=== PATIENT | male | born 1955 | race American Indian/Alaskan Native ===

== ENCOUNTER 2019-08-19 08:20 | Emergency (ER) | payer SELFPAY ==
--- NOTE | 2019-08-19 10:36 | Emergency Department Report ---
ED Headache HPI - General Chief Complaint: Headache Stated Complaint: GENERAL ILLNESS Time Seen by Provider: 08/19/19 09:24 Source: patient, RN notes reviewed Exam Limitations: no limitations - History of Present Illness Initial Comments: This is a 64-year-old -[place] male that presents to the emergency room with a headache for 2 weeks. Patient reports headache is global and intermittent. He states "it feels like someone is sticking a safety pen in my head". Patient states he usually get intermittent headaches when he is off of medication. Reports past medical history of hypertension and current smoker. Patient states he ran out of blood pressure medication 2 months ago and unable to get a refill. Patient states he usually get refills [facility] [place]. He attempts several calls with no answer. He denies chest pain, palpitations, visual changes, or dizziness. Timing/Duration: 1 week, episodic Quality: stabbing Head Injury Location: global Recent Head Trauma: no recent headache/trauma, occasional headaches Modifying Factors: improves with: medication Associated Symptoms: denies symptoms Allergies/Adverse Reactions: Allergies No Known Allergies Allergy (Unverified 08/19/19 08:27) Home Medications: Ambulatory Orders Lisinopril [Zestril] 5 mg PO DAILY #30 tablet 08/19/19 ED Review of Systems ROS: Stated complaint: GENERAL ILLNESS Other details as noted in HPI Constitutional: denies: chills, fever Respiratory: denies: cough, shortness of breath, wheezing Cardiovascular: denies: chest pain, palpitations Gastrointestinal: denies: abdominal pain, nausea, diarrhea Musculoskeletal: denies: back pain, joint swelling, arthralgia Skin: denies: rash, lesions Neurological: headache. denies: weakness, paresthesias Psychiatric: denies: anxiety, depression ED Past Medical Hx - Past Medical History Hx Hypertension: Yes - Surgical History Past Surgical History?: No - Social History Smoking Status: Current Every Day Smoker - Medications Home Medications: Home Medications Medication Instructions Recorded Confirmed Last Taken Type Lisinopril [Zestril] 5 mg PO DAILY #30 tablet 08/19/19 Unknown Rx ED Physical Exam - General Limitations: No Limitations General appearance: alert, in no apparent distress, obese - ENT ENT exam: Present: mucous membranes moist - Respiratory Respiratory exam: Present: normal lung sounds bilaterally. Absent: respiratory distress - Cardiovascular Cardiovascular Exam: Present: regular rate, normal rhythm. Absent: systolic murmur, diastolic murmur, rubs, gallop - GI/Abdominal GI/Abdominal exam: Present: soft, normal bowel sounds. Absent: distended, tenderness, guarding, rebound, rigid - Extremities Exam Extremities exam: Present: normal inspection - Neurological Exam Neurological exam: Present: alert, oriented X3, normal gait - Psychiatric Psychiatric exam: Present: normal affect, normal mood - Skin Skin exam: Present: warm, dry, intact, normal color. Absent: rash ED Course Vital Signs 08/19/19 08/19/19 08/19/19 10:22 10:56 11:42 Temperature 97.9 F Pulse Rate 98 H 69 62 Respiratory 16 18 Rate Blood Pressure 175/107 Blood Pressure 185/116 173/96 [Right] O2 Sat by Pulse 100 Oximetry ED Medical Decision Making - Medical Decision Making This is a 64 y.o. male that presents with headache for 1 to 2 weeks intermittently. History of HTN and current smoker. Patient off lisinopril for 2 months. Prior to running out of medication he was receiving refills by [facility] [place]. Patient is stable. He denies visual changes, dizziness, palpitations, chest pain, confusion, or edema. Blood pressure today is 185/116. Low suspicion of heart failure, AMI, or organ damage. Given lisinopril 5 mg po and Toradol 20 mg p.o. once in ER. Blood pressure trended down and reports feeling better. Blood pressure 173/96 prior to discharge. Informed patient it is important for him to monitor his blood pressure and follow-up outpatient with a primary care doctor. He was provided a prescription for lisinopril 5 mg p.o. daily which he previously took. Referrals for PCP follow-up. No further questions noted by the patient. Discharged home in stable condition. Follow up with PCP in 1 week. Critical care attestation.: If time is entered above; I have spent that time in minutes in the direct care of this critically ill patient, excluding procedure time. ED Disposition Clinical Impression: Current smoker Hypertension Qualifiers: Hypertension type: essential hypertension Qualified Code(s): I10 - Essential (primary) hypertension Disposition: - TO HOME OR SELFCARE Is pt being admited?: No Condition: Stable Instructions: Hypertension (ED), DASH Eating Plan (ED), How to Stop Smoking (ED) Additional Instructions: Encourage stop smoking to reduce cardiovascular risk. Moderate caffeine consumption is acceptable. Begin and maintain aerobic exercise, with a goal of at least 30 minutes of moderate intensity, dynamic aerobic exercise (walking, jogging, cycling, or swimming) 5 days per week to total 150 minutes as tolerated or recommended by a physician. Take medication daily as prescribed. Follow up with Primary Care Provider in 1 week. Prescriptions: Lisinopril [Zestril] 5 mg PO DAILY #30 tablet Referrals: [facility] [Outside] - 3-5 Days [facility] [Outside] - 3-5 Days [facility] [Outside] - 3-5 Days Time of Disposition: 12:07
[2019-08-19] MEDS ORDERED: LISINOPRIL 5 MG TAB PO ONE (10:42)
[2019-08-19] MEDS ORDERED: KETOROLAC 10 MG TAB PO ONE (11:00)
[2019-08-19 11:43] VITALS: BP 173/96
== END 2019-08-19 12:20 | disposition home or self-care (01) ==
LOC: ED 08:20
DX: I10 Essential (primary) hypertension (principal); F17.200 Nicotine dependence, unspecified, uncomplicated; Z79.899 Other long term (current) drug therapy
CPT/HCPCS: 99282